=== PATIENT | male | born 1985 | race Caucasian/White ===

== ENCOUNTER → 2020-02-25 12:53 | Outpatient (BNVA) | payer OTHER, SELFPAY | PROVIDERS: Family Provider Physician Assistant Medical; PCP Physician Assistant Medical; Visit Provider Nurse Practitioner Family | DX: Z11.59 Encounter for screening for other viral diseases (principal) | CPT/HCPCS: 87635 ==

== ENCOUNTER → 2020-09-23 11:35 | Outpatient (BNVA) | payer OTHER, SELFPAY | PROVIDERS: Family Provider Physician Assistant Medical; PCP Physician Assistant Medical; Visit Provider Nurse Practitioner Family | DX: J32.9 Chronic sinusitis, unspecified (principal); J02.9 Acute pharyngitis, unspecified | CPT/HCPCS: 87071; 87880 ==

== ENCOUNTER 2020-10-07 21:28 | Emergency (ER) | payer OTHER, SELFPAY ==
[2020-10-07 21:31] VITALS: BP 121/78; PULSE 85; RESP 16; TEMP 36.4; O2SAT 96; BMI 26.6
--- NOTE | 2020-10-07 21:47 | ECG_ITS ---
[facility] Test Date: 2020-10-07 Pat Name: Gregory Roe Department: Room: Gender: Male Church Worker: : 1985 Requested By: Francisco Lackey Order Number: [id number] Trevor MD: Rudy Elena M.D. Measurements Intervals [place] Rate: 87 P: 48 NC: 161 QRS: 37 QRSD: 89 T: 28 QT: 351 QTc: 424 Interpretive Statements SINUS RHYTHM No previous ECG available for comparison Electronically Signed On 10-09-2020 0:37:05 CDT by Rudy Elena M.D. [id number]
--- NOTE | 2020-10-07 21:47 | XRR_ITS ---
PROCEDURE INFORMATION: Exam: XR Chest Exam date and time: 10/07/2020 9:55 PM Age: 35 years old Clinical indication: Pain; Radiating; Additional info: Cp TECHNIQUE: Imaging protocol: XR of the chest. Views: 1 view. COMPARISON: No relevant prior studies available. FINDINGS: Lungs: Unremarkable. No consolidation. Pleural spaces: Unremarkable. No pleural effusion. No pneumothorax. Heart/Mediastinum: Unremarkable. No cardiomegaly. Bones/joints: Unremarkable. XR/XR chest 1V portable [id number] IMPRESSION: No acute findings.
--- NOTE | 2020-10-07 22:00 | PC.NURSE ---
EKG taken and given to Dr. Ren
[2020-10-07 22:10] LABS: Basophils # 0.1 10^3/uL (0.0-0.1); Basophils % 0.8 %; Eosinophils # 0.2 10^3/uL (0.0-0.8); Eosinophils % 1.7 %; Hematocrit 45.3 % (42.0-52.0); Hemoglobin 14.9 g/dL (11.7-16.6); Lymphocytes # 3.2 10^3/uL (0.8-4.8); Lymphocytes % 31.1 %; Mean Corpuscular HGB Conc 32.9 g/dL (30.0-36.0); Mean Corpuscular Hemoglobin 27.6 pg (28.0-34.0); Mean Corpuscular Volume 83.9 fL (80-94); Mean Platelet Volume 9.3 fL (7.4-10.4); Monocytes # 0.9 10^3/uL (0.2-0.9); Monocytes % 8.9 %; Neutrophils # 5.84 10^3/uL (1.8-7.7); Neutrophils % 57.2 %; Nucleated Red Blood Cells % 0 %; Platelet Count 244 10^3/cmm (130-400); Red Cell Distribution Width 12.3 % (12.1-15.1); White Blood Count 10.2 10^3/uL (4.0-10.0)
[2020-10-07 22:27] LABS: D Dimer <= 0.27 ug/mIFEU (0-0.59)
[2020-10-07 22:37] LABS: Troponin(5th) Baseline 6 ng/L (0-15)
[2020-10-07 22:45] LABS: Alanine Aminotransferase 34 U/L (0-41); Albumin Level 4.5 g/dL (3.5-5.2); Alkaline Phosphatase 52 IU/L (40-130); Anion Gap 12.9 (5-19); Aspartate Amino Transferase 19 U/L (0-40); Blood Urea Nitrogen 11 mg/dL (6-20); Calcium 8.9 mg/dL (8.5-10.5); Carbon Dioxide 26 mmol/L (22-29); Chloride 106 mmol/L (98-107); Creatine Phosphokinase 122 U/L (39-308); Globulin 2.8 g/dL (1.3-4.6); Glomerular Filtration Rate 111.3 mL/min (90-130); Glucose 91 mg/dL (65-115); NT Pro B Type Natriuretic Pept 19 pg/mL (0-125); Osmolality Calculated 291 mOsm/kg (285-295); Potassium 3.9 mmol/L (3.5-5.1); Sodium 141 mmol/L (136-145); Total Bilirubin 0.4 mg/dL (0.15-1.2); Total Protein 7.3 g/dL (6.6-8.7)
[2020-10-07] MEDS: lidocaine 2% viscous 15 ML, aluminum-mag hydrox-simethicon 30 ML, sucralfate oral liq 1 GM PO (22:50)
--- NOTE | 2020-10-07 23:01 | ED_ITS ---
HPI - Chest Pain General: Chief Complaint: Chest Pain Stated Complaint: CP, SOB Time Seen by Provider: 10/07/20 21:58 History of Present Illness: HPI narrative: 35-year-old male who is otherwise healthy. No history of diabetes hypertension or smoking. He notes that he had a sinus infection, treated with multiple antibiotics over the past couple of weeks. He finished those last week. He presents after an episode of chest pain that happened at home at rest while he was watching TV with his . He notes it is a sharp, deep chest discomfort. It seemed to go away, but he had another episode on the way here. He noted some blurry vision with it, nausea with it, and some shortness of breath the symptoms are resolved. He still feels some tingliness in his arms. No recent long car trips. MD complaint: chest pain Onset (ago): minute(s) Timing of current episode: episodic and now resolved Prior episodes: No Onset: during rest Pain location: substernal Pain radiation: none Severity: severe Quality: sharp Relieving factors: nothing Exacerbating factors: exertion (Possibly ) Context: recent illness (Upper respiratory illness 2 weeks ago) Associated symptoms: Reports diaphoresis, dyspnea and nausea; Deny abdominal pain, fever(s), leg edema, syncope or vomiting Treatment prior to arrival: none Review of Systems Const: Reports: diaphoresis; Denies: fever(s) Eyes: Reports: blurry vision ENMT: Denies: odynophagia, swelling of lips/tongue or sinus pain Card: Denies: syncope Resp: Reports: dyspnea GI: Reports: nausea; Denies: abdominal pain or vomiting : Denies: difficulty urinating or hematuria Musc: Denies: neck pain Skin/Breast: Denies: rash or erythema Neuro: Denies: headache(s), dizziness or vertigo Psych: Denies: anxiety PFSH ED PFSH: Social History (Updated 09/21/20 @ 13:18 by Binta Su LPN) Smoking and tobacco status: never smoked Physical Exam Const: GENERAL APPEARANCE: well developed ORIENTATION/CONSCIOUSNESS: Yes oriented to person, Yes oriented to place and Yes oriented to time HENMT: COMMON NORMALS: normocephalic, external ears normal and Normal external nose present HEAD & SCALP: normocephalic FACE & SINUS: normal facial exam NOSE: Normal external nose present and No nasal discharge present EXTERNAL EAR: Yes external ears normal Eye: COMMON NORMALS: Equal, round and reactive pupils present, EOMs intact bilaterally and conjunctivae normal EYELID: eyelids normal CONJUNCTIVA: Yes conjunctivae normal PUPIL: Yes Equal, round and reactive pupils present Neck/C-Spine: GENERAL: No tracheal deviation Chest: COMMONS NORMALS: normal inspection of the chest CHEST: No tenderness Resp: COMMON NORMALS: clear to auscultation bilaterally EFFORT & INSPECTION: No tachypneic, No respiratory distress, No retractions, No uses accessory muscles and No tracheal deviation AUSCULTATION: clear to auscultation bilaterally, no rhonchi, no wheezes and lung sounds not diminished Cardio: COMMON NORMALS: regular rate and regular rhythm RATE: regular rate RHYTHM: regular rhythm HEART SOUNDS: no murmurs PERIPHERAL PULSES: radial pulses present GI: COMMON NORMALS: Soft to palpation INSPECTION: No abdominal distension AUSCULTATION: No Hyperactive bowel sounds present and No Hypoactive bowel sounds present PALPATION: Yes Soft to palpation, Yes Tenderness to palpation present (GI) (Epigastric), No Guarding due to palpation present (GI) and No Rigid due to palpation PERCUSSION: no dullness to percussion and no tympanic to percussion Neuro: SENSORIUM/ORIENTATION: Yes oriented to person, Yes oriented to place and Yes oriented to time Psych: COMMON NORMALS: mental status grossly normal Skin: COMMON NORMALS: no rashes or lesions noted GENERAL SKIN EXAM: no rashes or lesions noted Course Vital Signs: Vital signs: Vital Signs Temperature 97.5 F L 10/07/20 21:31 Pulse Rate 72 10/08/20 00:35 Respiratory Rate 19 H 10/08/20 00:35 Blood Pressure 116/75 10/08/20 00:35 Pulse Oximetry 97 10/08/20 00:35 MDM - Chest Pain MDM Narrative: Medical decision making narrative: Blood cell count 10.2. Other labs are normal. Troponin is 6. D-dimer is nondetectable. Chest x-ray appears negative. EKG is a normal sinus rhythm with a normal axis, rate of 85, no acute ST changes. Normal intervals. 00:41 pain is resolved. Troponin remains at 6, and delta is 0. We will discharge home Lab Data: Labs: Lab Results 10/07/20 10/07/20 10/07/20 Range/Units 22:05 22:05 22:05 WBC 10.2 H (4.0-10.0) 10^3/ uL RBC 5.40 H (4.1-5.3) 10^6/u L Hgb 14.9 (11.7-16.6) g/dL Hct 45.3 (42.0-52.0) % MCV 83.9 (80-94) fL MCH 27.6 L (28.0-34.0) pg MCHC 32.9 (30.0-36.0) g/dL RDW 12.3 (12.1-15.1) % Plt Count 244 (130-400) 10^3/c mm MPV 9.3 (7.4-10.4) fL Neut % (Auto) 57.2 % Lymph % (Auto) 31.1 % [place] % (Auto) 8.9 % Eos % (Auto) 1.7 % Baso % (Auto) 0.8 % Neut # (Auto) 5.84 (1.8-7.7) 10^3/u L Lymph # (Auto) 3.2 (0.8-4.8) 10^3/u L [place] # (Auto) 0.9 (0.2-0.9) 10^3/u L Eos # (Auto) 0.2 (0.0-0.8) 10^3/u L Baso # (Auto) 0.1 (0.0-0.1) 10^3/u L Nucleated RBC % (a uto) 0 % Nucleated RBCs # 0.0 /100WBC D-Dimer <= 0.27 (0-0.59) ug/mIFE U Sodium 141 (136-145) mmol/L Potassium 3.9 (3.5-5.1) mmol/L Chloride 106 (98-107) mmol/L Carbon Dioxide 26 (22-29) mmol/L Anion Gap 12.9 (5-19) BUN 11 (6-20) mg/dL Creatinine 0.8 (0.7-1.2) mg/dL GFR Calculation 111.3 (90-130) mL/min Glucose 91 (65-115) mg/dL Calculated Osmolal ity 291 (285-295) mOsm/k g Calcium 8.9 (8.5-10.5) mg/dL Total Bilirubin 0.4 (0.15-1.2) mg/dL AST 19 (0-40) U/L ALT 34 (0-41) U/L Alkaline Phosphata se 52 (40-130) IU/L Creatine Kinase 122 (39-308) U/L Troponin T Baselin e (0-15) ng/L Troponin T 120 Min [place] (0-15) ng/L Delta Troponin T (0-10) ABS# NT-Pro-B Natriuret Pep 19 (0-125) pg/mL Total Protein 7.3 (6.6-8.7) g/dL Albumin 4.5 (3.5-5.2) g/dL Globulin 2.8 (1.3-4.6) g/dL 10/07/20 10/08/20 Range/Units 22:05 00:07 WBC (4.0-10.0) 10^3/ uL RBC (4.1-5.3) 10^6/u L Hgb (11.7-16.6) g/dL Hct (42.0-52.0) % MCV (80-94) fL MCH (28.0-34.0) pg MCHC (30.0-36.0) g/dL RDW (12.1-15.1) % Plt Count (130-400) 10^3/c mm MPV (7.4-10.4) fL Neut % (Auto) % Lymph % (Auto) % [place] % (Auto) % Eos % (Auto) % Baso % (Auto) % Neut # (Auto) (1.8-7.7) 10^3/u L Lymph # (Auto) (0.8-4.8) 10^3/u L [place] # (Auto) (0.2-0.9) 10^3/u L Eos # (Auto) (0.0-0.8) 10^3/u L Baso # (Auto) (0.0-0.1) 10^3/u L Nucleated RBC % (a uto) % Nucleated RBCs # /100WBC D-Dimer (0-0.59) ug/mIFE U Sodium (136-145) mmol/L Potassium (3.5-5.1) mmol/L Chloride (98-107) mmol/L Carbon Dioxide (22-29) mmol/L Anion Gap (5-19) BUN (6-20) mg/dL Creatinine (0.7-1.2) mg/dL GFR Calculation (90-130) mL/min Glucose (65-115) mg/dL Calculated Osmolal ity (285-295) mOsm/k g Calcium (8.5-10.5) mg/dL Total Bilirubin (0.15-1.2) mg/dL AST (0-40) U/L ALT (0-41) U/L Alkaline Phosphata se (40-130) IU/L Creatine Kinase (39-308) U/L Troponin T Baselin e 6 (0-15) ng/L Troponin T 120 Min [place] 6.00 (0-15) ng/L Delta Troponin T 0 (0-10) ABS# NT-Pro-B Natriuret Pep (0-125) pg/mL Total Protein (6.6-8.7) g/dL Albumin (3.5-5.2) g/dL Globulin (1.3-4.6) g/dL Discharge Plan Discharge Patient Disposition: Home Clinical Impression: Chest pain Qualifiers: Chest pain type: unspecified Qualified Code(s): R07.9 - Chest pain, unspecified Condition: Stable Prescriptions: No Action cephalexin 500 mg capsule 500 mg PO BID 10 Days Qty: 20 RF: 0 cetirizine [Zyrtec] 10 mg tablet 10 mg PO DAILY PRNRF: 0 fluticasone propionate [Flonase Allergy Relief] 50 mcg/actuation spray,suspension 1 spray intranasal DAILY RF: 0 [place] Once Daily Relief 0.7 % drops 1 drp ophthalmic (eye) DAILY RF: 0 ranitidine HCl 150 mg tablet PO RF: 0 azithromycin 250 mg tablet 250 mg PO DAILY 5 Days Qty: 6 RF: 0 Discharge Orders: Discharge ED (Routine); Ordered 10/08/20 Ordered By: Francisco Ren Referrals: Jl Chung [Primary Care Provider] - Patient Instructions: Chest Pain (ED) Activity Restrictions/Additional Instructions: Return for return of chest pain, shortness of breath, fever greater than 100, vomiting liquids or medications, other concerning symptoms Coding Level of Care Code ED Punch Press Operator for Chg Fwd Exam Comprehensive
[2020-10-07 23:16] VITALS: BP 115/87; PULSE 87; RESP 19; O2SAT 97
[2020-10-08 00:32] LABS: Troponin 5 2HR Delta 0 ABS# (0-10)
[2020-10-08 00:35] VITALS: BP 116/75; PULSE 72; RESP 19; O2SAT 97
[2020-10-08] MEDS: ketorolac 30 mg/mL INJ IVP (00:41)
[2020-10-08 00:49] VITALS: BP 116/75; PULSE 76; RESP 17; O2SAT 97
== END 2020-10-08 00:49 | disposition home or self-care (01) ==
PROVIDERS: Emergency Provider Emergency Medicine; PCP Physician Assistant Medical
DX: R07.9 Chest pain, unspecified (principal)
CPT/HCPCS: 71045; 80053; 82550; 83880; 84484; 85025; 85378; 93005; 96374; 99284; J1885

== ENCOUNTER 2020-10-24 08:32 | Outpatient (CLI) | payer OTHER, SELFPAY ==
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
== END 2020-10-24 08:33 | disposition home or self-care (01) ==
LOC: RADWPI 08:35
PROVIDERS: PCP Family Medicine Adult Medicine; Visit Provider Family Medicine Adult Medicine
DX: S04.50XA Injury of facial nerve, unspecified side, initial encounter (principal); X58.XXXA Exposure to other specified factors, initial encounter; R29.810 Facial weakness; S09.93XA Unspecified injury of face, initial encounter
CPT/HCPCS: 70486

== ENCOUNTER 2023-11-28 08:17 | Emergency (ER) | payer OTHER, SELFPAY ==
[2023-11-28 08:31] VITALS: BP 143/91; PULSE 84; RESP 18; TEMP 36.4; O2SAT 97; BMI 27.3
--- NOTE | 2023-11-28 08:37 | CTR_ITS ---
PROCEDURE INFORMATION: Exam: CT Abdomen And Pelvis Without Contrast Exam date and time: 11/28/2023 8:50 AM Age: 38 years old Clinical indication: Abdominal pain; Flank; Right; Additional info: Left flank pain TECHNIQUE: Imaging protocol: Computed tomography of the abdomen and pelvis without contrast. Radiation optimization: All CT scans at this facility use at least one of these dose optimization techniques: automated exposure control; mA and/or kV adjustment per patient size (includes targeted exams where dose is matched to clinical indication); or iterative reconstruction. COMPARISON: CR XR chest 1V portable [id number] 10/07/2020 9:50 PM RADIATION DOSE METRICS: Total DLP (mGy-cm): 566.83 FINDINGS: Lungs: There is a 3 mm noncalcified pulmonary nodule at the right lung base. There is a calcified granuloma involving the medial left lower lobe. Liver: Normal. No mass. Gallbladder and biliary ducts: Normal. No calcified stones. No ductal dilation. Pancreas: Normal. No ductal dilation. Spleen: Normal. No splenomegaly. Adrenal glands: Normal. No mass. Kidneys and ureters: There is mild hydronephrosis and hydroureter on the right extending to the ureterovesical junction where there is a 2-3 mm stone present. There are tiny nonobstructing renal calculi bilaterally. The kidneys otherwise have a normal noncontrast appearance. Stomach and bowel: Unremarkable. No obstruction. No mucosal thickening. Appendix: No evidence of appendicitis. Intraperitoneal space: Unremarkable. No free air. No significant fluid collection. Vasculature: Unremarkable. No abdominal aortic aneurysm. Lymph nodes: Unremarkable. No enlarged lymph nodes. Urinary bladder: Unremarkable as visualized. Reproductive: Unremarkable as visualized. Bones/joints: Unremarkable. No acute fracture. Soft tissues: There is a tiny fat filled periumbilical hernia. CT/CT kidney stone [id number] IMPRESSION: 1. Mild hydronephrosis and hydroureter on the right secondary to a small 2 3 mm stone at the ureterovesical junction. 2. Tiny nonobstructing renal calculi bilaterally. 3. Small 3 mm noncalcified pulmonary nodule right lung base. For patients at low risk (minimal or absent history of smoking and of other known risk factors), no routine follow-up is indicated. For patients at high risk (history of smoking or of other known risk factors), consider optional CT Chest at 12 months. (Reference: Ciro) References: Ciro Schilling, et al. Guidelines for Management of Incidental Pulmonary Nodules Detected on CT Images: From the Fleischner Society 2017. Radiology. 2017;284(1):228-243.
[2023-11-28] MEDS: ketorolac 30 mg/mL INJ 15 MG IVP (08:44)
[2023-11-28] MEDS: ondansetron 2 mg/ML SDV 2 mL 4 MG IVP (08:44)
[2023-11-28 08:52] LABS: Basophils # 0.1 10^3/uL (0.0-0.1); Basophils % 0.8 %; Eosinophils # 0.2 10^3/uL (0.0-0.8); Hematocrit 52.1 % (37-53); Lymphocytes # 1.8 10^3/uL (0.8-4.8); Lymphocytes % 24.2 %; Mean Corpuscular HGB Conc 33.8 g/dL (30-55); Mean Corpuscular Hemoglobin 28.1 pg (27-33); Mean Corpuscular Volume 83.1 fl (82-101); Mean Platelet Volume 8.8 fL (7.4-10.4); Monocytes # 0.6 10^3/uL (0.2-0.9); Monocytes % 8.2 %; Neutrophils % 63.4 %; Nucleated Red Blood Cells % 0 %; Platelet Count 248 10^3/cmm (157-399); Red Blood Count 6.27 10^6/uL (3.85-5.65); Red Cell Distribution Width 12.6 % (12.1-15.1); White Blood Count 7.41 10^3/uL (3.29-11.43)
[2023-11-28] MEDS: sodium chloride 0.9% 1,000 ML 999 ML IV (09:00)
--- NOTE | 2023-11-28 09:00 | ED_ITS ---
HPI - Abdominal Pain 2 General: Chief Complaint: Abdominal Pain Stated Complaint: abd pain Time Seen by Provider: 11/28/23 08:34 History of Present Illness: This patient is a 38 year old presenting with right flank pain that started suddenly at 6 am this morning. It is constant and severe. He feels it wrapping around the lower right side into the right lower quadrant. He does not note that it radiates to the testicle or scrotum. He has no trouble urinating. He denies history of kidney stones. He has not had any abdominal surgeries. No fever. He has had nausea, but no vomiting. 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 Social History Smoking and tobacco/nicotine status: never used tobacco/nicotine Alcohol intake: current Alcohol intake frequency: holidays/special occasions only Substance/Drug Use: never Marital status: Number of children: 2 Number of grandchildren: 0 Current occupational status: employed Physical Exam 2 Const: COMMON NORMALS: patient oriented x3, no limitations and alert G ENERAL APPEARANCE: cooperative and in distress HENMT: HEAD & SCALP: normal to inspection FACE & SINUS: normal facial exam Eye: GENERAL EYE: appearance normal, both eyes and all related structures Neck/C-Spine: COMMON NORMALS: supple, no meningeal signs and no JVD Chest: COMMONS NORMALS: normal inspection of the chest Resp: COMMON NORMALS: normal respiratory effort, No use of accessory muscles and clear to auscultation bilaterally AUSCULTATION: clear to auscultation bilaterally Cardio: COMMON NORMALS: no JVD, regular rate, regular rhythm and No murmurs present (Cardio) RATE: regular rate RHYTHM: regular rhythm GI: COMMON NORMALS: Normal to inspection, nondistended, normoactive bowel sounds present INSPECTION: Yes normal to inspection AUSCULTATION: Yes normoactive bowel sounds PALPATION: Yes Tenderness to palpation present (GI) (suprapubic) Details: RLQ Back/Pelvis: COMMON NORMALS: thoracic and lumbar spine normal to inspection Extremity: COMMON NORMALS: normal to inspection Neuro: COMMON NORMALS: patient oriented x3, moves all extremities, no focal motor deficits and no sensory deficits noted SENSORIUM/ORIENTATION: Yes alert MENINGEAL SIGNS: Yes no meningeal signs Psych: COMMON NORMALS: mental status grossly normal, cooperative and normal affect Skin: COMMON NORMALS: no rashes or lesions noted and turgor normal GENERAL SKIN EXAM: no rashes or lesions noted and turgor normal Course 2 Vital Signs: Vital signs: Vital Signs Temperature 97.5 F L 11/28/23 08:31 Pulse Rate 72 11/28/23 10:33 Respiratory Rate 18 11/28/23 08:31 Blood Pressure 143/91 11/28/23 08:31 Pulse Oximetry 97 11/28/23 10:33 Oxygen Delivery Me thod Room Air 11/28/23 08:31 MDM - Abdominal Pain Medical Decision Making Suspect kidney stone given the rapid onset - although other causes such as appendicitis could be possible. No urinary symptoms. No inguinal or testicular pain. Labs, fluid, UA, CT pending. Pain meds ordered. CT shows evidence of a right sided stone - it appears to have passed into the bladder. Discussed with patient including return precautions and need for follow up. Lab Data 11/28/23 08:45 11/28/23 08:45 Labs/Radiology: Radiology Impressions Abdomen/Pelvis CT 11/28/23 08:37 IMPRESSION: 1. Mild hydronephrosis and hydroureter on the right secondary to a small 2 3 mm stone at the ureterovesical junction. 2. Tiny nonobstructing renal calculi bilaterally. 3. Small 3 mm noncalcified pulmonary nodule right lung base. For patients at low risk (minimal or absent history of smoking and of other known risk factors), no routine follow-up is indicated. For patients at high risk (history of smoking or of other known risk factors), consider optional CT Chest at 12 months. (Reference: Ciro) References: Ciro Schilling, et al. Guidelines for Management of Incidental Pulmonary Nodules Detected on CT Images: From the Fleischner Society 2017. Radiology. 2017;284(1):228-243. Laboratory Results WBC 7.41 10^3/uL (3.29-11.43) 11/28/23 08:45 RBC 6.27 10^6/uL (3.85-5.65) H 11/28/23 08:45 Hgb 17.60 g/dL (11.27-16.99) H 11/28/23 08:45 Hct 52.1 % (37-53) 11/28/23 08:45 MCV 83.1 fl (82-101) 11/28/23 08:45 MCH 28.1 pg (27-33) 11/28/23 08:45 MCHC 33.8 g/dL (30-55) 11/28/23 08:45 RDW 12.6 % (12.1-15.1) 11/28/23 08:45 Plt Count 248 10^3/cmm (157-399) 11/28/23 08:45 MPV 8.8 fL (7.4-10.4) 11/28/23 08:45 Neut % (Auto) 63.4 % 11/28/23 08:45 Lymph % (Auto) 24.2 % 11/28/23 08:45 [place] % (Auto) 8.2 % 11/28/23 08:45 Eos % (Auto) 3.0 % 11/28/23 08:45 Baso % (Auto) 0.8 % 11/28/23 08:45 Neut # (Auto) 4.70 10^3/uL (1.8-7.7) 11/28/23 08:45 Lymph # (Auto) 1.8 10^3/uL (0.8-4.8) 11/28/23 08:45 [place] # (Auto) 0.6 10^3/uL (0.2-0.9) 11/28/23 08:45 Eos # (Auto) 0.2 10^3/uL (0.0-0.8) 11/28/23 08:45 Baso # (Auto) 0.1 10^3/uL (0.0-0.1) 11/28/23 08:45 Nucleated RBC % (auto) 0 % 11/28/23 08:45 Nucleated RBCs # 0.0 /100WBC 11/28/23 08:45 Sodium 141 mmol/L (136-145) 11/28/23 08:45 Potassium 3.9 mmol/L (3.5-5.1) 11/28/23 08:45 Chloride 104 mmol/L (98-107) 11/28/23 08:45 Carbon Dioxide 26 mmol/L (22-29) 11/28/23 08:45 Anion Gap 14.9 (5-19) 11/28/23 08:45 BUN 13 mg/dL (6-20) 11/28/23 08:45 Creatinine 1.1 mg/dL (0.7-1.2) 11/28/23 08:45 GFR Calculation 75.7 mL/min (90-130) L 11/28/23 08:45 Glucose 120 mg/dL (65-115) H 11/28/23 08:45 Calculated Osmolality 293 mOsm/kg (285-295) 11/28/23 08:45 Calcium 9.3 mg/dL (8.5-10.5) 11/28/23 08:45 Total Bilirubin 0.7 mg/dL (0.15-1.2) 11/28/23 08:45 AST 24 U/L (0-40) 11/28/23 08:45 ALT 34 U/L (0-41) 11/28/23 08:45 Alkaline Phosphatase 55 U/L (40-130) 11/28/23 08:45 Total Protein 7.6 g/dL (6.6-8.7) 11/28/23 08:45 Albumin 4.6 g/dL (3.5-5.2) 11/28/23 08:45 Globulin 3.0 g/dL (1.3-4.6) 11/28/23 08:45 Urine Color Yellow (Yellow) 11/28/23 10:05 Urine Appearance Clear (CLEAR) 11/28/23 10:05 Urine pH 8 (5-7) H 11/28/23 10:05 Ur Specific [place] 1.010 (1.005-1.030) 11/28/23 10:05 Urine Protein Trace (Negative) 11/28/23 10:05 Urine Glucose (UA) Norm (Normal) 11/28/23 10:05 Urine Ketones Negative (Negative) 11/28/23 10:05 Urine Blood 3+ (Negative) H 11/28/23 10:05 Urine Nitrate Negative (Negative) 11/28/23 10:05 Urine Bilirubin Neg (Negative) 11/28/23 10:05 Urine Urobilinogen Norm mg/dL (Negative) 11/28/23 10:05 Ur Leukocyte Esterase Negative (Negative) 11/28/23 10:05 Urine RBC 25-40 /hpf (0-2) H 11/28/23 10:05 Urine WBC 5-10 /hpf (0-5) H 11/28/23 10:05 Ur Squamous Epith Cells None /hpf (0-5) 11/28/23 10:05 Amorphous Sediment Not Reportable 11/28/23 10:05 Urine Bacteria 1+ /hpf (NONE) H 11/28/23 10:05 Urine Mucus 1+ /hpf 11/28/23 10:05 All radiology interpretation(s) finalized by discharge Discharge Plan Discharge Patient Disposition: Home Clinical Impression: Kidney stone on right side, Renal colic on right side Condition: Stable Prescriptions: No Action prednisone 20 mg tablet 60 mg PO DAILY 7 Days Qty: 21 0RF cetirizine [Zyrtec] 10 mg tablet 10 mg PO DAILY PRN fluticasone propionate [Flonase Allergy Relief] 50 mcg/actuation spray,suspension 1 spray intranasal DAILY Rx Instructions: administer into each nostril ranitidine HCl 150 mg tablet PO Discharge Orders: Discharge ED (Routine); Ordered 11/28/23 Ordered By: Belkys Kearns Referrals: Jose Burdick MD [Primary Care Provider] - Discharge Diet: Advance as tolerated Discharge Activity: Resume usual activity Patient Instructions: Kidney Stones (ED), Opioid Safety, Pain Management Activity Restrictions/Additional Instructions: Return to the ED if ongoing severe pain, fever, or if not able to urinate. Follow up with your primary care provider to discuss further management. Coding Level of Care Code ED Manager [facility] for [facility]
[2023-11-28 09:10] LABS: Alanine Aminotransferase 34 U/L (0-41); Albumin Level 4.6 g/dL (3.5-5.2); Alkaline Phosphatase 55 U/L (40-130); Anion Gap 14.9 (5-19); Aspartate Amino Transferase 24 U/L (0-40); Blood Urea Nitrogen 13 mg/dL (6-20); Calcium 9.3 mg/dL (8.5-10.5); Carbon Dioxide 26 mmol/L (22-29); Chloride 104 mmol/L (98-107); Creatinine Clr Calc Pharmacy 96.7762; Glomerular Filtration Rate 75.7 mL/min (90-130); Glucose 120 mg/dL (65-115); Osmolality Calculated 293 mOsm/kg (285-295); Potassium 3.9 mmol/L (3.5-5.1); Sodium 141 mmol/L (136-145); Total Bilirubin 0.7 mg/dL (0.15-1.2); Total Protein 7.6 g/dL (6.6-8.7)
[2023-11-28 10:03] VITALS: PULSE 84; O2SAT 100
[2023-11-28 10:33] VITALS: PULSE 72; O2SAT 97
[2023-11-28 11:09] LABS: Glucose Urine UA Norm (Normal); Ketones Urine Negative (Negative); Protein Urine Trace (Negative); Urine Appearance Clear (CLEAR); Urine Color Yellow (Yellow); pH Urine 8 (5-7)
[2023-11-28 11:10] LABS: Add Urine Culture? Yes; Add Urine Microscopic? YES; Bacteria Urine 1+ /hpf; Bilirubin Urine Neg (Negative); Blood Urine 3+ (Negative); Leukocyte Esterase Urine Negative (Negative); Mucus Urine 1+ /hpf; Nitrate Urine Negative (Negative); RBC Urine 25-40 /hpf (0-2); Urobilinogen Urine Norm (Negative)
== END 2023-11-28 11:54 | disposition home or self-care (01) ==
PROVIDERS: Emergency Provider Emergency Medicine; PCP Family Medicine Adult Medicine
DX: N13.2 Hydronephrosis with renal and ureteral calculous obstruction (principal); Z79.899 Other long term (current) drug therapy
CPT/HCPCS: 74176; 80053; 81001; 85025; 87086; 96374; 96375; 99285; J1885; J2405; J7030